=== PATIENT | male | born 1975 | race Caucasian/White ===

== ENCOUNTER 2016-09-24 20:43 | Observation (INO) | payer MEDICAID ==
[~2016-09-24] VITALS: Ht 167.6 cm; Wt 86.6 kg
[2016-09-24] MEDS ORDERED: ONDANSETRON HCL 4MG/2ML VIAL IV STA (21:08)
[2016-09-24] MEDS ORDERED: SODIUM CHLORIDE 0.9% 1,000 ML IV ONE ×2 (21:08→23:00)
[2016-09-24] MEDS ORDERED: KETOROLAC 30MG/ML VIAL IV STA (21:08)
[2016-09-24] MEDS ORDERED: MECLIZINE 25MG TABLET PO ONE ×2 (21:15→23:00)
[2016-09-24 21:50] LABS: BASOPHILS % 0.2 % (0.0-2.0); EOSINOPHILS % 0.2 % (0.0-5.0); HEMATOCRIT. 42.1 % (42.0-52.0); HEMOGLOBIN. 14.4 g/dL (14.0-18.0); LYMPHOCYTES % 13.1 % (20.0-50.0); MEAN CORPUSCULAR HEMOGLOBIN 30.8 pg (28.0-32.0); MEAN PLATELET VOLUME 9.5 fl (7.4-10.4); MONOCYTES % 3.7 % (2.0-8.0); NEUTROPHILS % 82.8 % (40.0-76.0); PLATELET 159 x1000/uL (130-400); RED BLOOD CELL COUNT 4.68 mill/uL (4.7-6.1); RED CELL DISTRIBUTION WIDTH 12.9 % (11.6-14.6)
[2016-09-24 21:57] LABS: CHLORIDE 108 mEq/L (98-107); PROTHROMBIN TIME 10.8 sec
[2016-09-24 22:03] LABS: CARBON DIOXIDE 21 mEq/L (21-32)
[2016-09-24] MEDS ORDERED: SUMATRIPTAN SUCCINATE 6MG/0.5ML VIAL SUBCUT ONE (23:00)
[2016-09-25] MEDS ORDERED: ONDANSETRON HCL 4MG/2ML VIAL IV ONE (00:15)
[2016-09-25 05:00] VITALS: BP 111/71
[2016-09-25 05:15] VITALS: BP 111/76
[2016-09-25] MEDS ORDERED: SODIUM CHLORIDE 0.9% 1,000 ML IV SCH (05:45)
[2016-09-25 08:00] VITALS: BP 112/71
[2016-09-25] MEDS ORDERED: ENOXAPARIN 40MG/0.4ML SYR SUBCUT SCH (09:00)
[2016-09-25 12:00] VITALS: BP 107/65
[2016-09-25 13:12] VITALS: BP 107/65
[2016-09-25 17:53] LABS: CLARITY URINE CLEAR (CLEAR); COLOR URINE YELLOW (YELLOW); GLUCOSE URINE NEGATIVE (NEGATIVE); KETONES URINE NEGATIVE (NEGATIVE); LEUKOCYTE ESTERASE URINE NEGATIVE (NEGATIVE); NITRITE URINE NEGATIVE (NEGATIVE); OCCULT BLOOD URINE NEGATIVE (NEGATIVE); PROTEIN URINE NEGATIVE (NEGATIVE); UROBILINOGEN URINE 0.2 E.U./dL (0.2-1.0)
[2016-09-25 18:03] LABS: *AMPHETAMINES SCREEN URINE NEGATIVE (NEGATIVE); *BARBITURATES SCREEN URINE NEGATIVE (NEGATIVE); *BENZODIAZEPINES SCREEN URINE NEGATIVE (NEGATIVE); *COCAINE SCREEN URINE NEGATIVE (NEGATIVE); CANNABINOID URINE SCREEN NEGATIVE (NEGATIVE); METHADONE URINE SCREEN NEGATIVE (NEGATIVE); OPIATES URINE SCREEN NEGATIVE (NEGATIVE); PHENCYCLIDINE URINE SCREEN NEGATIVE (NEGATIVE)
== END 2016-09-25 15:45 | disposition home or self-care (01) ==
LOC: ER 20:48 → 5WST 09-25 00:41 → INTOOBSV 09-25 00:41 → ENRESERV 09-25 04:15
PROVIDERS: ADMIT Internal Medicine Nephrology; ATTEND Internal Medicine Nephrology
DX: R00.1 Bradycardia, unspecified (principal); R73.9 Hyperglycemia, unspecified; R42 Dizziness and giddiness; R11.2 Nausea with vomiting, unspecified; F48.8 Other specified nonpsychotic mental disorders
CPT/HCPCS: 36415; 70450; 80053; 80305; 81003; 85025; 85610; 93005; 96361; 96372; 96374; 96375; 96376; 97162; 99285; G0378; J1650; J1885; J2405; J3030; J7030; J8597